=== PATIENT | female | born 1980 ===

== ENCOUNTER → 2023-12-05 11:05 | Outpatient (REF) | payer OTHER, SELFPAY | LOC: WDC 11:05 | PROVIDERS: ATTENDING PHYSICIAN Surgery; FAMILY PHYSICIAN Internal Medicine | DX: Z12.31 Encounter for screening mammogram for malignant neoplasm of breast (principal); Z12.39 Encounter for other screening for malignant neoplasm of breast | CPT/HCPCS: 77063; 77067 ==

== ENCOUNTER → 2024-01-02 08:59 | Outpatient (REF) | payer OTHER, SELFPAY | LOC: WDC 08:59 | PROVIDERS: ATTENDING PHYSICIAN Radiology Radiation Oncology; FAMILY PHYSICIAN Internal Medicine | DX: R92.2 Inconclusive mammogram (principal); Z85.3 Personal history of malignant neoplasm of breast; Z86.000 Personal history of in-situ neoplasm of breast | CPT/HCPCS: 76641 ==

== ENCOUNTER 2024-05-03 06:22 | Day surgery (SDC) | payer OTHER, SELFPAY | END 2024-05-03 10:05 | disposition home or self-care (01) | LOC: GI 06:22 | PROVIDERS: ATTENDING PHYSICIAN Internal Medicine Gastroenterology | DX: Z12.11 Encounter for screening for malignant neoplasm of colon (principal); K57.30 Diverticulosis of large intestine without perforation or abscess without bleeding; K64.8 Other hemorrhoids; Q43.8 Other specified congenital malformations of intestine | CPT/HCPCS: 45378 ==

== ENCOUNTER → 2024-08-23 08:12 | Outpatient (REF) | payer OTHER, SELFPAY | LOC: WDC 08:12 | PROVIDERS: ATTENDING PHYSICIAN Radiology Radiation Oncology | DX: R92.8 Other abnormal and inconclusive findings on diagnostic imaging of breast (principal); Z86.000 Personal history of in-situ neoplasm of breast | CPT/HCPCS: 76642 ==

== ENCOUNTER → 2024-12-06 16:12 | Outpatient (REF) | payer OTHER, SELFPAY | LOC: WDC 16:12 | PROVIDERS: ATTENDING PHYSICIAN Radiology Radiation Oncology | DX: Z12.31 Encounter for screening mammogram for malignant neoplasm of breast (principal); Z86.000 Personal history of in-situ neoplasm of breast | CPT/HCPCS: 77063; 77067 ==